=== PATIENT | female | born 1960 | race Two or more races ===

== ENCOUNTER 2024-01-26 08:47 | Day surgery (SDC) | payer OTHER ==
[2024-01-23 14:21] VITALS: BMI 23.3
[2024-01-26 09:09] VITALS: RESP 18
[2024-01-26 10:12] VITALS: PULSE 65; TEMP 97.7
[2024-01-26 10:35] VITALS: BP 108/70
== END 2024-01-26 11:10 | disposition home or self-care (01) ==
LOC: FASU-ENDO 08:47
PROVIDERS: ATTEND Internal Medicine Gastroenterology
PROC: 0DB68ZX Excision of Stomach, Via Natural or Artificial Opening Endoscopic, Diagnostic (ICD-10-PCS; 2024-01-26)
PROC: 0DB48ZX Excision of Esophagogastric Junction, Via Natural or Artificial Opening Endoscopic, Diagnostic (ICD-10-PCS; 2024-01-26)
PROC: 0DB98ZX Excision of Duodenum, Via Natural or Artificial Opening Endoscopic, Diagnostic (ICD-10-PCS; principal; 2024-01-26 09:51)
DX: K29.50 Unspecified chronic gastritis without bleeding (principal); K20.90 Esophagitis, unspecified without bleeding; R10.13 Epigastric pain; K44.9 Diaphragmatic hernia without obstruction or gangrene
CPT/HCPCS: 88305-TC; 88342-TC

== ENCOUNTER 2024-04-23 05:00 | Day surgery (SDC) | payer OTHER ==
[2024-04-18 13:09] VITALS: BMI 24.0
[2024-04-23 10:49] VITALS: PULSE 58; RESP 16; TEMP 98.2
[2024-04-23 11:07] VITALS: BP 104/52
== END 2024-04-23 11:15 | disposition home or self-care (01) ==
LOC: JASU-ENDO 05:00
PROVIDERS: ATTEND Internal Medicine Gastroenterology
PROC: 0DB78ZX Excision of Stomach, Pylorus, Via Natural or Artificial Opening Endoscopic, Diagnostic (ICD-10-PCS; 2024-04-23)
PROC: 0DB68ZX Excision of Stomach, Via Natural or Artificial Opening Endoscopic, Diagnostic (ICD-10-PCS; principal; 2024-04-23 10:24)
DX: K29.50 Unspecified chronic gastritis without bleeding (principal); K31.7 Polyp of stomach and duodenum
CPT/HCPCS: 88305-TC; 88342-TC